=== PATIENT | female | born 1975 | race Caucasian/White ===

== ENCOUNTER 2022-09-08 09:50 | Outpatient (CLI) | payer OTHER ==
--- NOTE | 2022-09-09 11:30 | Mammography Report ---
BILATERAL FIRST EVER DIGITAL SCREENING MAMMOGRAM 3D/2D WITH EXAGGERATED CC: 09/08/2022 CLINICAL: Routine screening. Family history of breast cancer. Baseline exam. No prior exams were available for comparison. There are scattered areas of fibroglandular density in both breasts (category b / 25%-50% glandular t issue). No significant masses, calcifications, or other findings are seen in either breast. IMPRESSION: NEGATIVE There is no mammographic evidence of malignancy. A 1 year screening mammogram is recommended. Based on the Tyrer Cuzick model (a risk assessment model) the patients lifetime risk is 7.4% and her 10 year risk is 1.4%. According to the ACR, ACS, and NCCN guidelines, an annual breast MRI exam phil g with mammogram is recommended if the patients lifetime risk is 20% or greater. This exam was interpreted at Station ID: [id number]. NOTE: For mammograms, a report in lay terms will be sent to the patient. Approximately 15% of breast malignancies will not be visualized mammographically. In the management of a palpable breast mass, a negative mammogram must not discourage biopsy of a clinically suspicious lesion. Electronically Signed By: Jelly carrillo/ovidio:09/08/2022 17:54:48 ACR BI-RADS Category 1: Negative 3341F PARENCHYMAL PATTERN: (A) - The breast(s) demonstrate(s) scattered fibroglandular densities. BI-RADS CATEGORY: (1) - 1 RECOMMENDATION: (ANNUAL) - Recommend routine annual screening mammography. [id number] 1 year screening LATERALITY: (B)
== END 2022-09-08 09:51 | disposition home or self-care (01) ==
LOC: DI.S 09:50
DX: Z12.31 Encounter for screening mammogram for malignant neoplasm of breast (principal); Z80.3 Family history of malignant neoplasm of breast

== ENCOUNTER 2022-09-17 08:42 | Outpatient (CLI) | payer OTHER ==
[2022-09-17 08:54] LABS: HCT - HEMATOCRIT 39.5 % (37.0-47.0); HGB - HEMOGLOBIN 12.2 g/dL (12.0-16.0); MEAN CORPUSCULAR HEMOGLOBIN 24.2 pg (27.0-31.0); MEAN CORPUSCULAR HGB CONC 30.9 g/dL (32.0-36.0); MEAN CORPUSCULAR VOLUME 78.2 fL (81.0-99.0); MEAN PLATELET VOLUME 9.8 fL (7.9-10.8); RED BLOOD COUNT 5.05 10^6/uL (4.20-5.40); RED CELL DISTRIBUTION WIDTH 15.1 % (12.0-15.0); WHITE BLOOD COUNT 6.2 x10^3/uL (4.8-10.8)
[2022-09-17 09:17] LABS: ALBUMIN 3.9 g/dL (3.2-5.5); ALBUMIN/GLOBULIN RATIO 1.1 (1.0-2.2); ALKALINE PHOSPHATASE 76 IU/L (42-121); ALT ALANINE AMINOTRANSFERASE 13 IU/L (10-60); AST ASPARTATE AMINOTRANSFERASE 22 IU/L (10-42); BILIRUBIN,TOTAL 0.7 mg/dL (0.2-1.0); BUN - BLOOD UREA NITROGEN 14 mg/dL (6-20); CALCIUM 9.3 mg/dL (8.5-10.3); CARBON DIOXIDE - CO2 26 mmol/L (21-32); CHLORIDE 106 mmol/L (101-111); CHOL/HDL RATIO 4.3 (<4.4); CHOLESTEROL 251 mg/dL; CREATININE 0.7 mg/dL (0.4-1.0); GFR - MDRD 90 (>89); GLUCOSE 95 mg/dL (70-100); HDL CHOLESTEROL 58 mg/dL; LDL CHOLESTEROL,CALCULATED 160 mg/dL; LDL/HDL RATIO 2.8 (<4.4); POTASSIUM 4.6 mmol/L (3.5-5.0); SODIUM 140 mmol/L (135-145); TOTAL PROTEIN 7.6 g/dL (6.7-8.2); TRIGLYCERIDES 166 mg/dL; VLDL CHOLESTEROL 33 mg/dL
[2022-09-17 09:44] LABS: THYROID STIMULATING HORMONE 1.89 uIU/mL (0.34-5.60)
[2022-09-17 09:46] LABS: FREE T4 (FREE THYROXINE) 0.72 ng/dL (0.58-1.64)
[2022-09-17 09:50] LABS: FERRITIN 4.6 ng/mL (11.0-306.8)
[2022-09-17 11:59] LABS: ESTIMATED AVERAGE GLUCOSE 100 mg/dL (70-100); HEMOGLOBIN A1c% 5.1 % (4.27-6.07)
== END 2022-09-17 08:43 | disposition home or self-care (01) ==
LOC: LAB 08:42
PROVIDERS: ATTEND Nurse Practitioner
DX: Z13.220 Encounter for screening for lipoid disorders (principal); Z13.0 Encounter for screening for diseases of the blood and blood-forming organs and certain disorders involving the immune mechanism; Z13.1 Encounter for screening for diabetes mellitus; Z13.29 Encounter for screening for other suspected endocrine disorder
CPT/HCPCS: 36415; 80053; 80061; 82728; 83036; 83721; 84439; 84443; 85027

== ENCOUNTER 2022-09-30 13:24 | Outpatient (CLI) | payer OTHER ==
--- NOTE | 2022-09-30 17:53 | Ultrasound Report ---
PROCEDURE: Pelvic w/Transvaginal INDICATIONS: MENORRHAGIA TECHNIQUE: Real-time scanning was performed of the pelvic organs, with image documentation. Additional endovagi nal scanning was necessary due to incomplete visualization of the adnexal and endometrial structures by transabdominal scanning. COMPARISON: None. FINDINGS: Uterus: Uterus is anteverted and normal in size at 8.5 x 4.4 x 6.2 cm. The myometrium is homogeneou s. The endometrium measures 6.6 mm in combined thickness. Ovaries: The right ovary measures 2.0 x 1.9 x 2.3 cm, with a calculated ovarian volume of 4.5 cc. T he left ovary measures 2. By 1.1 x 2.1 cm, with a calculated ovarian volume of 3.3 cc. The ovaries h ave a normal sonographic appearance. Less than 12 follicles can be seen in each ovary. No adnexal m asses are seen. Other: No pathologic free abdominal or pelvic fluid. IMPRESSION: Normal ultrasound of the pelvis Reviewed by: Jigar Mares MD on 09/30/2022 4:51 PM [place] Approved by: Jigar Mares MD on 09/30/2022 4:51 PM AKST Station ID: [id number]
== END 2022-09-30 13:25 | disposition home or self-care (01) ==
LOC: DI 13:24
PROVIDERS: ATTEND Nurse Practitioner
DX: N92.0 Excessive and frequent menstruation with regular cycle (principal); N95.1 Menopausal and female climacteric states

== ENCOUNTER 2022-11-23 12:48 | Outpatient (CLI) | payer OTHER | END 2022-11-23 12:49 | disposition home or self-care (01) | LOC: LAB.S 12:48 | PROVIDERS: ATTEND Obstetrics & Gynecology | DX: N95.1 Menopausal and female climacteric states (principal) | CPT/HCPCS: 36415; 83001 ==

== ENCOUNTER 2022-11-24 06:22 | Day surgery (SDC) | payer OTHER ==
[~2022-11-24 06:22] MED LIST: CEFAZOLIN 2G/50ML 0.9% NS 2 GM/50 ML BAG IV ONE
[2022-11-24] MEDS ORDERED: ACETAMINOPHEN 1,000 MG/100 ML 1,000 MG/100 ML BAG IV ONE ×2 (06:23→14:00)
[2022-11-24] MEDS ORDERED: LACTATED RINGERS 1,000 ML IV ONE ×2 (06:35→11:53)
[2022-11-24 06:42] LABS: HCG UR QUAL NEGATIVE
[2022-11-24] MEDS ORDERED: LIDOCAINE MPF 2%-EPI 1:200000 20 ML VIAL ONE (07:10)
[2022-11-24] MEDS ORDERED: BUPIVACAINE 0.25% PF 30 ML VIAL ONE (07:10)
[2022-11-24] MEDS ORDERED: PROPOFOL 200 MG/20 ML VIAL IVP ONE (07:12)
[2022-11-24] MEDS ORDERED: MIDAZOLAM 2 MG/2 ML VIAL ONE (07:12)
[2022-11-24] MEDS ORDERED: ROCURONIUM 50 MG/5 ML VIAL ONE ×3 (07:12→09:50)
[2022-11-24] MEDS ORDERED: fentaNYL 100 MCG/2 ML VIAL ONE ×2 (07:12→08:41)
[2022-11-24] MEDS ORDERED: HYDROmorphone 0.5 MG/0.5 ML SYRINGE IVP PRN (07:34)
[2022-11-24] MEDS ORDERED: ATROPINE ABBOJECT 1 MG/10 ML SYRINGE IVP PRN (07:34)
[2022-11-24] MEDS ORDERED: NALOXONE 0.4 MG/ML VIAL IVP PRN (07:34)
[2022-11-24] MEDS ORDERED: METOCLOPRAMIDE 10 MG/2 ML VIAL IVP PRN ×2 (07:34→19:26)
[2022-11-24] MEDS ORDERED: MORPHINE 2 MG/ML CARPUJECT IVP PRN (07:34)
[2022-11-24] MEDS ORDERED: fentaNYL 100 MCG/2 ML VIAL IVP PRN (07:34)
[2022-11-24] MEDS ORDERED: ePHEDrine 50 MG/ML VIAL IVP PRN (07:34)
[2022-11-24] MEDS ORDERED: ONDANSETRON 4 MG/2 ML VIAL IVP PRN (07:34)
--- NOTE | 2022-11-24 07:34 | ANESTHESIA ---
Pre-Anesthesia VS, & Labs - Diagnosis menorrhagia - Procedure lap hysterectomy with possible oophorectomy Height: 5 ft 2 in Weight (kg): 83 kg Body Mass Index: 33.5 BMI Classification: Obese - NPO >8 hours - Is Patient ?: No Home Medications and Allergies Home Medications: Ambulatory Orders No Known Home Medications 11/18/22 No Known Home Medications 11/18/22 Allergies/Adverse Reactions: Allergies Allergy/AdvReac Type Severity Reaction Status Date / Time No Known Drug Allergies Allergy Verified 11/24/22 06:54 Anes History & Medical History - Anesthetic History Anesthesia Complications: reports: No previous complications Family history of Anesthesia Complications: Denies Family history of Malignant Hyperthermia: Denies - Medical History Cardiovascular: reports: None Pulmonary: reports: Asthma (childhood) Gastrointestinal: reports: None Urinary: reports: Chronic bladder infection Musculoskeletal: reports: None Endocrine/Autoimmune: reports: None Skin: reports: None Psychosocial: reports: No issues indicated - Surgical History Gynecologic: reports: Tubal ligation Exam General: Alert, Oriented x3, Cooperative Dental: WNL Mouth Openin Fingerbreadth Neck Mobility: Normal Mallampati classification: II Thyromental Distance: 4-6 cm Respiratory: Lungs clear Cardiovascular: Regular rate Plan Anesthesia Type: General Consent for Procedure(s) Verified and Reviewed: Yes Code Status: Attempt Resuscitation ASA classification: 2-Mild systemic disease Is this case an emergency?: No
[2022-11-24] MEDS ORDERED: LACTATED RINGERS 1,000 ML IV SCH (08:00)
[2022-11-24] MEDS ORDERED: DEXAMETHASONE 4 MG/ML VIAL ONE (08:04)
[2022-11-24] MEDS ORDERED: HYDROmorphone 1 MG/ML CARPUJECT ONE (09:21)
[2022-11-24] MEDS ORDERED: LIDOCAINE MPF 2%-EPI 1:200000 20 ML VIAL SUBQ ONE ×2 (09:35)
[2022-11-24] MEDS ORDERED: BUPIVACAINE 0.25% PF 30 ML VIAL SUBQ ONE ×2 (09:35)
[2022-11-24] MEDS ORDERED: KETOROLAC 30 MG/ML VIAL ONE (11:11)
[2022-11-24] MEDS ORDERED: SUGAMMADEX 200 MG/2 ML VIAL IVP ONE (11:11)
[2022-11-24] MEDS ORDERED: SILVER NITRATE APPLICATOR TOP ONE (11:39)
[2022-11-24] MEDS ORDERED: oxyCODONE 5 MG TABLET PO PRN (12:02)
[2022-11-24] MEDS ORDERED: oxyCODONE 5 MG TABLET ONE (12:54)
[2022-11-24] MEDS ORDERED: ONDANSETRON 4 MG/2 ML VIAL ONE (12:59)
[2022-11-24] MEDS ORDERED: SCOPOLAMINE PATCH TOP SCH (14:28)
--- NOTE | 2022-11-24 15:40 | ANESTHESIA POST OP EVALUATION ---
Anesthesia Post Eval - Post Anesthesia Eval Vitals: Last Vital Signs Temp 36.6 C 11/24/22 13:59 Pulse 81 11/24/22 14:44 Resp 12 11/24/22 14:44 BP 142/86 H 11/24/22 14:44 Pulse Ox 97 11/24/22 14:44 O2 Flow Rate CV Function Including HR & BP: Stable Pain Control: Satisfactory Nausea & Vomiting: Negative Mental Status: Baseline Respiratory Status: Airway Patent Hydration Status: Satisfactory Anesthesia Complications: None
[2022-11-24] MEDS ORDERED: ONDANSETRON 4 MG/2 ML VIAL IVP ONE (16:11)
[2022-11-24] MEDS: KETOROLAC 30 MG/ML VIAL IVP SCH (16:56)
[2022-11-24] MEDS: traMADol 50 MG TABLET PO SCH (21:41)
[2022-11-25] MEDS: traMADol 50 MG TABLET PO SCH ×5 (01:55→11:04)
[2022-11-25 05:53] LABS: BASOPHILS % (AUTO) 0.1 %; EOSINOPHILS % (AUTO) 0.4 %; HCT - HEMATOCRIT 30.3 % (37.0-47.0); HGB - HEMOGLOBIN 9.4 g/dL (12.0-16.0); LYMPHOCYTES # (AUTO) 1.8 10^3/uL (1.5-3.5); LYMPHOCYTES % (AUTO) 20.6 %; MEAN CORPUSCULAR HEMOGLOBIN 24.6 pg (27.0-31.0); MEAN CORPUSCULAR VOLUME 79.3 fL (81.0-99.0); MEAN PLATELET VOLUME 9.7 fL (7.9-10.8); MONOCYTES # (AUTO) 0.6 10^3/uL (0.0-1.0); MONOCYTES % (AUTO) 7.3 %; NEUTROPHILS # (AUTO) 6.1 10^3/uL (1.5-6.6); NEUTROPHILS % (AUTO) 71.2 %; PLT - PLATELET COUNT 223 10^3/uL (130-450); RED BLOOD COUNT 3.82 10^6/uL (4.20-5.40); RED CELL DISTRIBUTION WIDTH 16.2 % (12.0-15.0); WHITE BLOOD COUNT 8.5 x10^3/uL (4.8-10.8)
[2022-11-25 06:05] LABS: ALBUMIN/GLOBULIN RATIO 1.1 (1.0-2.2); BILIRUBIN,TOTAL 0.8 mg/dL (0.2-1.0); CALCIUM 7.9 mg/dL (8.5-10.3); CREATININE 0.7 mg/dL (0.4-1.0); POTASSIUM 3.6 mmol/L (3.5-5.0); TOTAL PROTEIN 5.8 g/dL (6.7-8.2)
[2022-11-25 09:36] VITALS: BP 140/81
[2022-11-25] MEDS: KETOROLAC 30 MG/ML VIAL IVP SCH ×2 (11:02→11:03)
--- NOTE | 2022-11-25 16:53 | OPERATIVE REPORT ---
Operative Report - General Procedure Date: 11/24/22 Planned Procedure: Total laparoscopic hysterectomy, bilateral salpingectomy, possible oophorectomy, cystoscopy Pre-Op Diagnosis: Abnormal perimenopausal bleeding Procedure Performed: Total laparoscopic hysterectomy, bilateral salpingectomy, right oophorectomy, cystoscopy Post Op Diagnosis: Abnormal sherrie-menopausal bleeding, right ovarian cyst - Procedure Note Primary Surgeon: Sophia Estrada DO Secondary Surgeon: Kevin Melendez MD; assistance required for retraction, safe completion Anesthesia Provider: Reyna Moody CRNA Anesthesia Technique: General ET tube Pathology: Uterus with cervix, bilateral oviducts, right ovary Estimated Blood Loss (mL): 600 Indications: Abnormal sherrie-menopausal bleeding Findings: Normal appearing uterus, bilateral tubes, left ovary. Right ovary with cyst Left pelvic mass in left abdomen side wall Complications: None - Other Other Information/Narrative: Patient taken to OR where GETA obtained without difficulty. Placed in dorsal lithotomy position and prepped and draped in sterile fashion. Roland catheter placed. Clarendon speculum placed in vagina and anterior lip of cervix grasped with single tooth tenaculum. Large VCARE manipulator advanced into uterus. Speculum and tenaculum removed. Attention then turned to abdomen where 5mm skin incision made in umbilical fold. Veress needle carefully introduced into peritoneal cavity. Intraperitoneal placement confirmed with drop test and drop in intraabdominal pressure with CO2 gas insufflation. Trocar and sleeve advanced without difficulty into abdomen where intraabdominal placement confirmed with laparoscope. Two additional 5mm incisions made in pelvis bilaterally and trocars introduced under direct visualization. 0.25% marcaine/2%lidocaine with epinephrine injection prior to skin incisions x3. Aforementioned findings noted. General surgery asked to visualize left abdominal mass/cyst. They concur to obtain imaging prior to surgical treatment now. Left fallopian tube grasped and LigaSure device used for transection along mesosalpinx. This was repeated on the right fallopian tube. Tubes removed through left 5mm port. Ovarian ligament transected bilaterally with LigaSure. Dissection was carried down to uterine arteries bilaterally with LigaSure. Anterior leaf of broad ligament and bladder flap was created with Ligasure. L hook cautery was used to amputate cervix. Hemostasis ensured. Uterus removed vaginally. Decision made to remove right ovary due to ovarian cyst (per patient preference). Vaginal cuff closed vaginally with series of figure of eight 0 vicryl sutures. Hemostasis noted. Attention then returned to abdomen. Vaginal cuff hemostatic. Pelvis irrigated and suctioned. Hemostasis at all dissection sites. Trocars removed under direct visualization. Pneumoperitoneum released. Umbilical trocar removed. 5mm incisions x3 were closed with 4-0 Monocryl and dermabond. Cystoscopy then performed. Jets noted from ureteral orifices bilaterally. No bleeding, sutures or defects noted in bladder. Vaginal cuff sutures cut. Hemostasis. Sponge, lap, needle, and instrument counts were correct x2. Patient taken to PACU in stable condition.
--- NOTE | 2022-11-25 17:13 | DISCHARGE SUMMARY ---
"Discharge Summary Admit Date: 11/24/22 Discharge Date: 11/25/22 Discharging Provider: Sophia Estrada DO Code Status: Attempt Resuscitation Condition at Discharge: Good Discharge Disposition: 01 Home, Self Care Discharge Facility Name: [facility] - DIAGNOSES Admission Diagnoses: Abnormal sherrie-menopausal bleeding - HPI History of Present Illness: 47yo admitted 11/24/22 for scheduled TLH/BS, cystoscopy. - CONSULTS | PROCEDURES Consultations: Anesthesia Procedures: TLH/BS/Right oophorectomy, cystoscopy - HOSPITAL COURSE Hospital Course: 47yo admitted 11/24/22 for scheduled TLH/BS, cystoscopy. See operative reports. She recovered well. She stayed overnight POD#0 for nausea and vomiting. This improved after Reglan. Pain controlled. Denies vaginal bleeding. Ambulating. Voiding adequately. Tolerated breakfast. Denies shortness of breath, chest pain. Feels ready to go home POD#1. Postoperative care and precautions reviewed. - ALLERGIES Allergies/Adverse Reactions: Allergies Allergy/AdvReac Type Severity Reaction Status Date / Time No Known Drug Allergies Allergy Verified 11/24/22 06:54 - MEDICATIONS Home Medications: Ambulatory Orders Medication Instructions Recorded Confirmed No Known Home Medications 11/18/22 11/18/22 - PHYSICAL EXAM AT DISCHARGE General Appearance: positive: No acute distress Eyes Bilateral: positive: EOMI Respiratory: positive: No respiratory distress Abdomen: positive: Other (Incisions c/d/i x3, appropriate tenderness, nondistended) Skin: positive: Color nml Extremities: positive: Non-tender Neurologic/Psychiatric: positive: Oriented x3 - LABS Result Diagrams: 11/25/22 05:44 11/25/22 05:44 - QUALITY (Female Hip Fx Only) Was patient sent home on osteoporosis medication?: No - FOLLOW UP Follow Up: 12/03/22 8290 with - TIME SPENT Time Spent in Discharge (Minutes): 25"
== END 2022-11-25 11:00 | disposition home or self-care (01) ==
LOC: SDS 06:22 → FBP 12:15 → SDS 11-25 11:00
PROVIDERS: ATTEND Obstetrics & Gynecology
PROC: 0UT94ZZ Resection of Uterus, Percutaneous Endoscopic Approach (ICD-10-PCS; principal; 2022-11-24 07:30)
PROC: 0UT74ZZ Resection of Bilateral Fallopian Tubes, Percutaneous Endoscopic Approach (ICD-10-PCS; 2022-11-24 07:30)
PROC: 0UB04ZZ Excision of Right Ovary, Percutaneous Endoscopic Approach (ICD-10-PCS; 2022-11-24 07:30)
DX: N92.4 Excessive bleeding in the premenopausal period (principal); N92.0 Excessive and frequent menstruation with regular cycle; N83.291 Other ovarian cyst, right side; N83.8 Other noninflammatory disorders of ovary, fallopian tube and broad ligament; E66.9 Obesity, unspecified; Z68.33 Body mass index [BMI] 33.0-33.9, adult
CPT/HCPCS: 36415; 58571; 80053; 81025; 85025; A9270; J0131; J0690; J1170; J2765; J3490; J7120

== ENCOUNTER 2022-12-03 08:00 | Outpatient (CLI) | payer OTHER ==
[2022-12-04 13:01] LABS: BILIRUBIN,URINE NEGATIVE (NEGATIVE); GLUCOSE, URINE (UA) NEGATIVE (NEGATIVE); KETONES,URINE (UA) NEGATIVE (NEGATIVE); LEUKOCYTE ESTERASE, URINE MODERATE (NEGATIVE); NITRITE,URINE NEGATIVE (NEGATIVE); OCCULT BLOOD,URINE LARGE (NEGATIVE); PROTEIN,URINE NEGATIVE (NEGATIVE); UROBILINOGEN,URINE 0.2 (NORMAL) E.U./dL (NORMAL)
[2022-12-04 13:04] LABS: CLARITY,URINE CLOUDY (CLEAR)
[2022-12-04 13:57] LABS: AMORPHOUS SEDIMENT,UR Marked /LPF; BACTERIA,URINE Many /HPF (None Seen); CRYSTALS,URINE 11-25 Ca Oxalate /LPF; MUCUS,URINE Few Strands; SQUAMOUS EPITHELIAL CELL,UR FEW Squamous (<= Few); WBC,URINE >25 /HPF (0-5)
== END 2022-12-03 23:59 | disposition home or self-care (01) ==
LOC: LAB.WC 08:00
PROVIDERS: ATTEND Obstetrics & Gynecology
DX: R30.0 Dysuria (principal); Z12.4 Encounter for screening for malignant neoplasm of cervix
CPT/HCPCS: 81001; 87086; 87181

== ENCOUNTER 2022-12-17 15:51 | Outpatient (CLI) | payer OTHER ==
[~2022-12-17 15:51] MED LIST changes: -CEFAZOLIN 2G/50ML 0.9% NS 2 GM/50 ML BAG IV ONE; +GADOBUTROL 10 MMOL/10 ML VIAL ONE
[2022-12-17] MEDS ORDERED: GADOBUTROL 10 MMOL/10 ML VIAL IVP ONE (17:33)
--- NOTE | 2022-12-18 10:07 | MRI Report ---
PROCEDURE: ABDOMEN W/WO INDICATIONS: ABD MASS CONTRAST: GADAVIST 8.2 ML TECHNIQUE: Coronal ultra fast SE, axial 2D spoiled GE in- and [id number]; axial breath-hold T2 fast SE. Dynam ic axial ultra fast GE during the administration of contrast; post-contrast coronal ultra fast GE or 2D spoiled GE with fat saturation from the hepatic dome to the iliac crests. Optional diffusion weig hted imaging and ADC may be performed. COMPARISON: Pelvic ultrasound 09/30/2022 FINDINGS: Image quality: Excellent. Lung bases and heart: No pleural effusions. Normal size heart. No hiatal hernia. Liver: No solid or enhancing mass. Gallbladder and biliary tree: The gallbladder is extremely decompressed or atrophic. No biliary dilat ation. Spleen: Normal. Pancreas: Normal. Adrenals: No ductal dilatation. Kidneys and ureters: 1.2 cm anterior lower pole right renal cyst. No hydronephrosis or hydroureter. Bowel and peritoneum: No bowel distension. No pathologic free fluid. Lymph nodes: No central or retroperitoneal adenopathy. Vessels: No infrarenal aortic aneurysm. Bones: No aggressive osseous abnormality. Other: There is a thin-walled, unilocular, homogeneously T2 hyperintense mass in the left lower abdom en measuring 8.7 x 7.2 x 8.9 cm. There is no intrinsic fat signal. There is no peripheral or internal enhancement postcontrast. No adjacent fluid. No visible free fluid in the abdomen or pelvis. IMPRESSION: 1. 8.9 cm unilocular simple left-sided intraperitoneal cyst. Differential diagnosis includes benign e tiologies such as peritoneal inclusion cyst or enteric duplication cyst. There are no suspicious feat ures to suggest malignancy. A prior pelvic ultrasound indicates this structure to be separate from th e left ovary. Consider 6-12 month follow-up to assess for any significant change. Reviewed by: Jelly Lane MD on 12/18/2022 10:05 AM PDT Approved by: Jelly Lane MD on 12/18/2022 10:05 AM PDT Station ID: [id number]
== END 2022-12-17 15:52 | disposition home or self-care (01) ==
LOC: DI 15:51
PROVIDERS: ATTEND Obstetrics & Gynecology
DX: R19.04 Left lower quadrant abdominal swelling, mass and lump (principal)
CPT/HCPCS: 74183; A9585

== ENCOUNTER 2022-12-21 11:17 | Outpatient (CLI) | payer OTHER ==
[2022-12-21 14:39] LABS: CHOL/HDL RATIO 3.8 (<4.4); CHOLESTEROL 224 mg/dL; HDL CHOLESTEROL 59 mg/dL; LDL CHOLESTEROL,CALCULATED 124 mg/dL; LDL/HDL RATIO 2.1 (<4.4); TRIGLYCERIDES 203 mg/dL; VLDL CHOLESTEROL 41 mg/dL
== END 2022-12-21 11:18 | disposition home or self-care (01) ==
LOC: LAB.S 11:17
PROVIDERS: ATTEND Nurse Practitioner
DX: N95.1 Menopausal and female climacteric states (principal); Z13.220 Encounter for screening for lipoid disorders
CPT/HCPCS: 36415; 80061; 83001; 83721

== ENCOUNTER 2023-06-29 14:25 | Outpatient (CLI) | payer OTHER | END 2023-06-29 14:26 | disposition home or self-care (01) | LOC: LAB.S 14:25 | DX: Z01.818 Encounter for other preprocedural examination (principal) ==

== ENCOUNTER 2024-02-16 13:16 | Outpatient (CLI) | payer OTHER ==
--- NOTE | 2024-02-17 10:37 | Mammography Report ---
BILATERAL DIGITAL SCREENING MAMMOGRAM 3D/2D: 02/16/2024 Comparison is made to exam dated: 09/08/2022 mammogram - [facility]. There are scattered areas of fibroglandular density in both breasts (category b / 25%-50% glandular t issue). No significant masses, calcifications, or other findings are seen in either breast. There has been no significant interval change. IMPRESSION: NEGATIVE There is no mammographic evidence of malignancy. A 1 year screening mammogram is recommended. Based on the Tyrer Cuzick model (a risk assessment model) the patient's lifetime risk is 6.4% and her 10 year risk is 1.3%. According to the ACR, ACS, and NCCN guidelines, an annual breast MRI exam phil g with mammogram is recommended if the patient's lifetime risk is 20% or greater. This exam was interpreted at Station ID: [id number]. NOTE: For mammograms, a report in lay terms will be sent to the patient. Approximately 15% of breast malignancies will not be visualized mammographically. In the management of a palpable breast mass, a negative mammogram must not discourage biopsy of a clinically suspicious lesion. Electronically Signed By: Jelly carrillo/ovidio:02/16/2024 15:46:45 letter sent: No_Letter ACR BI-RADS Category 1: Negative 3341F PARENCHYMAL PATTERN: (A) - The breast(s) demonstrate(s) scattered fibroglandular densities. BI-RADS CATEGORY: (1) - 1 RECOMMENDATION: (ANNUAL) - Recommend routine annual screening mammography. [id number] 1 year screening LATERALITY: (B)
== END 2024-02-16 13:17 | disposition home or self-care (01) ==
LOC: DI.S 13:16
PROVIDERS: ATTEND Nurse Practitioner
DX: Z12.31 Encounter for screening mammogram for malignant neoplasm of breast (principal); R92.323 Mammographic fibroglandular density, bilateral breasts